=== PATIENT | male | born 1970 | race Caucasian/White ===

== ENCOUNTER 2016-10-24 04:45 | Emergency (ER) | payer OTHER ==
[~2016-10-24 04:45] MED LIST: FEOSOL325 MG PO; FLAGYL500 MG PO; LEVAQUIN TAB 5500 MG PO; MEPRON750 MG/5 M PO; MULTIVITAMINS1 EAC2 PO; TRIUMEQ TABLET1 EACH PO; VITAMIN B-121000 MC3 PO; ZYVOX600 MG PO
[2016-10-24 06:10] LABS: RED BLOOD COUNT 3.86 M/UL (4.20-5.50); WHITE BLOOD COUNT 18.2 K/UL (4.5-11.0)
[2016-10-24 06:23] LABS: BUN/CREATININE RATIO 10 (0-10)
== END 2016-10-24 09:20 ==
LOC: ER1 04:45
PROVIDERS: Physician Assistant
DX: A41.9 Sepsis, unspecified organism (principal); N45.2 Orchitis; N43.3 Hydrocele, unspecified; Z21 Asymptomatic human immunodeficiency virus [HIV] infection status; Z87.891 Personal history of nicotine dependence; Z88.2 Allergy status to sulfonamides; Z91.040 Latex allergy status; Z79.899 Other long term (current) drug therapy
CPT/HCPCS: 36415; 71010; 76870; 80053; 81001; 83605; 85025; 87040; 87086; 96365; 96375; 99285; J2270; J2405; J2543; J7050

== ENCOUNTER 2021-01-31 18:07 | Emergency (ER) | payer OTHER ==
[~2021-01-31 18:07] MED LIST changes: +KEFLEX500 MG PO
[2021-01-31 19:24] LABS: HEMOGLOBIN 9.9 gm/dl (14.0-17.5); RED BLOOD COUNT 3.53 M/UL (4.20-5.50); WHITE BLOOD COUNT 7.8 K/UL (4.5-11.0)
[2021-02-01] MEDS ORDERED: CYCLOBENZAPRINE10 MG PO
== END 2021-02-01 00:25 | disposition home or self-care (01) ==
LOC: ER1 18:07
PROVIDERS: Physician Assistant
DX: M54.5 Low back pain (principal); D64.9 Anemia, unspecified; R59.0 Localized enlarged lymph nodes; B20 Human immunodeficiency virus [HIV] disease; Z91.040 Latex allergy status
CPT/HCPCS: 72132; 80053; 81001; 83605; 85025; 87040; 99284; Q9967